=== PATIENT | male | born 1975 | race Caucasian/White ===

== ENCOUNTER 2017-09-05 11:33 | Emergency (ER) | payer OTHER ==
[~2017-09-05] VITALS: Ht 180.3 cm; Wt 86.2 kg
[2017-09-05 12:01] LABS: ABSOLUTE BASOPHIL COUNT 0 /CUMM (0.0-0.2); ABSOLUTE EOSINOPHIL COUNT 0.2 /CUMM (0.0-0.7); ABSOLUTE GRANULOCYTE CT 4.2 /CUMM (1.4-6.5); ABSOLUTE LYMPH COUNT 0.8 /CUMM (1.2-3.4); ABSOLUTE MONOCYTE COUNT 0.4 /CUMM (0.10-0.60); BASOPHIL % 0.6 % (0.0-2.0); EOSINOPHIL % 3.4 % (0-5); GRANULOCYTE % 74.1 % (42.2-75.2); HEMATOCRIT 43.6 % (42-52); MEAN CORPUSCULAR HGB 27.6 PG (27.0-31.0); MEAN CORPUSCULAR HGB CONC 34.1 G/DL (33.0-37.0); MEAN CORPUSCULAR VOLUME 81.2 FL (80.0-94.0); MEAN PLATELET VOLUME 8.2 FL (7.4-10.4); PLATELET COUNT 248 /CUMM (130-400); RBC DISTRIBUTION WIDTH 13.1 % (11.5-14.5); RED BLOOD CELL CT 5.37 /CUMM (4.70-6.10); WHITE BLOOD CELL COUNT 5.7 /CUMM (4.8-10.8)
--- NOTE | 2017-09-05 13:26 | RADIOLOGY REPORT ---
EXAMINATION: XR CHEST CLINICAL INFORMATION: Chest pain. COMPARISON: None TECHNIQUE: 2 views of the chest were obtained. FINDINGS: Both lungs are hyperinflated but clear of acute process. The heart size and pulmonary vascularity is normal. No gross bony abnormality seen. IMPRESSION: Unremarkable chest exam.
--- NOTE | 2017-09-05 14:53 | ED GENERAL ADULT ---
History of Present Illness General Chief Complaint: Chest Pain Stated Complaint: LFT ARM NUMBNESS/CP/HEART BURN Source: patient Exam Limitations: no limitations Vital Signs & Intake/Output Vital Signs & Intake/Output Vital Signs Date Time Temp Pulse Resp B/P B/P Pulse O2 O2 Flow FiO2 Mean Ox Delivery Rate 09/05 1737 98.0 65 18 124/82 97 Room Air 09/05 1455 97 Room Air 09/05 1151 99.2 84 20 131/84 97 Room Air Allergies Coded Allergies: No Known Allergies (09/05/17) Reconcile Medications No Known Home Medications Triage Note: C/O NUMBNESS IN THE BACK OF LEFT ARM SINCE SUNDAY. PT ALSO C/O LEFT LUNG PAIN AND HEARTBURN PRESSURE OVER STERNUM. TOOK PREVACID WITH SOME RELIEF. STATES A BIT OF LIGHTHEADEDNESS OFF AND ON Triage Nurses Notes Reviewed? yes Onset: Abrupt Duration: day(s): Timing: recent history HPI: 09/05/17 7:45 PM 41-year-old male presents to the emergency department complaining of left-sided arm discomfort and chest pain that has been intermittent and ongoing over the past several days. No shortness of breath. No fever. He admits to a chronic intermittent cough. No significant past medical history. Past History Travel History Traveled to [place] past 21 day No Medical History Any Pertinent Medical History? see below for history Respiratory: asthma Surgical History Surgical History: non-contributory Psychosocial History What is your primary language Greek Tobacco Use: Never used ETOH Use: denies use Illicit Drug Use: denies illicit drug use Family History Hx Contributory? No Review of Systems Review of Systems Constitutional: Denies: fever. EENTM: Reports: no symptoms. Respiratory: Reports: cough. Cardiovascular: Reports: chest pain. GI: Denies: abdominal pain. Genitourinary: Reports: no symptoms. Musculoskeletal: Reports: see HPI. Skin: Reports: no symptoms. Neurological/Psychological: Reports: no symptoms. Hematologic/Endocrine: Reports: no symptoms. Immunologic/Allergic: Reports: no symptoms. Physical Exam Physical Exam General Appearance: well developed/nourished, alert, awake, anxious, mild distress Head: atraumatic, normal appearance Eyes: Bilateral: normal appearance, PERRL, EOMI. Ears, Nose, Throat: normal pharynx, normal ENT inspection Neck: normal inspection, supple Respiratory: normal breath sounds, chest non-tender, no respiratory distress Cardiovascular: regular rate/rhythm Peripheral Pulses: 4+ radial (R), 4+ radial (L) Gastrointestinal: soft, non-tender Back: normal range of motion Extremities: normal inspection, normal range of motion, no edema Neurologic/Psych: no motor/sensory deficits, awake, alert, oriented x 3, normal gait Skin: intact, normal color, warm/dry Core Measures ACS in differential dx? No CVA/TIA Diagnosis: No Sepsis Present: No Sepsis Focused Exam Completed? No Progress Differential Diagnoses I considered the following diagnoses in my evaluation of the patient: Plan of Care: Orders Procedure Date/time Status Add-on Test (ER Only) 09/05 1552 Active TROPONIN LEVEL 09/05 1552 Complete EKG 09/05 1552 Active D-DIMER 09/05 1150 Complete TSH REFLEX 09/05 1143 Complete TROPONIN LEVEL 09/05 1143 Complete PROTHROMBIN TIME 09/05 1143 Complete LIPASE 09/05 1143 Complete COMPREHENSIVE METABOLIC PANEL 09/05 1143 Complete CBC WITHOUT DIFFERENTIAL 09/05 1143 Complete B-TYPE NATRIURETIC PEP (BNP) 09/05 1143 Complete EKG 09/05 1135 Active Laboratory Tests 09/05/17 1600: Troponin I < 0.01 09/05/17 1150: Anion Gap 13, Estimated GFR > 60, BUN/Creatinine Ratio 17.0, Glucose 90, Calcium 9.7, Total Bilirubin 1.1, AST 16 L, ALT 28, Alkaline Phosphatase 66, Troponin I < 0.01, Ols-H-Wbhwjvdnrdz Pept 29.3, Total Protein 7.9, Albumin 4.9, Globulin 3.0, Albumin/Globulin Ratio 1.6, Lipase 80, TSH &T3 &Free T4 Intrp 1.690, PT 12.0, INR 1.10, D-Dimer High Sensitivty < 200, CBC w Diff NO MAN DIFF REQ, RBC 5.37, MCV 81.2, MCH 27.6, MCHC 34.1, RDW 13.1, MPV 8.2, Gran % 74.1, Lymphocytes % 14.7 L, Monocytes % 7.2, Eosinophils % 3.4, Basophils % 0.6, Absolute Granulocytes 4.2, Absolute Lymphocytes 0.8 L, Absolute Monocytes 0.4, Absolute Eosinophils 0.2, Absolute Basophils 0 Initial ED EKG: NSR, nonspecific ST T wave chg Repeat EKG: unchanged Departure Departure Disposition: HOME OR SELF CARE Condition: Stable Clinical Impression Primary Impression: Chest pain Referrals: Caren VILLASEÑOR,Jason Taylor (PCP/Family) Departure Forms: Customer Survey General Discharge Information Prescriptions: Current Visit Scripts No Known Home Medications Comments 09/05/17 5:30 PM The patient was discussed with Dr. Morin who reviewed the EKGs and is in agreement with the plan. Repeat EKG is unchanged. 2 troponins are negative. Chest x-ray and d-dimer are negative. He will follow-up with Dr. Morin this week or return to the emergency department if symptoms return. His HEART score is low risk. Critical Care Note Critical Care Note Critical Care Time: non-applicable
[2017-09-05 17:37] VITALS: BP 124/82
== END 2017-09-05 18:23 ==
LOC: ERH 11:33
PROVIDERS: Physician Assistant
DX: R07.9 Chest pain, unspecified (principal)
CPT/HCPCS: 71046; 93005; 93010